=== PATIENT | male | born 1975 | race Caucasian/White ===

== ENCOUNTER 2022-11-22 14:52 | Outpatient (CLI) | payer OTHER, SELFPAY ==
--- NOTE | 2022-11-22 15:03 | MR_ITS ---
WS: [id number] MRI BRAIN WITH HIGH-RESOLUTION IMAGING THROUGH THE INTERNAL AUDITORY CANALS WITHOUT AND WITH CONTRAST HISTORY: SUDDEN IDIOPATHIC HEARING LOSS, LEFT EAR COMPARISON: None available. TECHNIQUE: Multiplanar, multisequence imaging is performed through the brain. Additional 3 mm imaging performed in multiple planes through the internal auditory canal. Postcontrast imaging with 20 ml's of MultiHance. No acute intracranial hemorrhage, midline shift, edema or mass effect. No prior infarcts. No significant microvascular disease. No significant volume loss. Ventricles are n ormal size. No mass effect. Ventricles and extra-axial spaces are normal. No inferior displacement of cerebellar tonsils. Clivus and pituitary gland are normal. Internal and external auditory canals: Unremarkable. Cranial nerves VII and VIII complexes: Unremarkable. No enhancement or mass. Cerebellopontine angles: Normal. Paranasal sinuses: Very minimal mucoperiosteal thickening in the posterior ethmoid air cells. Mastoid air cells: Normal. Calvarium and scalp: Normal. Visualized [place] and dural venous sinuses demonstrate no abnormality. IMPRESSION: 1. No mass or signal abnormality at the cerebellopontine angles along the internal auditory canals. 2. No intracranial mass. 3. Negative MRI brain.
[2022-11-22] MEDS: gadobenate dimeglumine 20 mL vial IV (16:50)
== END 2022-11-22 14:53 | disposition home or self-care (01) ==
LOC: RAD 14:52
PROVIDERS: PCP Emergency Medicine Emergency Medical Services; Visit Provider Specialist
DX: H91.22 Sudden idiopathic hearing loss, left ear (principal)
CPT/HCPCS: 70553; A9577

== ENCOUNTER 2023-02-07 02:58 | Emergency (ER) | payer OTHER, SELFPAY ==
[2023-02-07] VITALS (7 sets, daily range): BP systolic 103–172; BP diastolic 57–87; PULSE 85–104; RESP 15–20; TEMP 36.8; O2SAT 94–95
--- NOTE | 2023-02-07 03:04 | XRR_ITS ---
PROCEDURE INFORMATION: Exam: XR Chest Exam date and time: 02/07/2023 3:15 AM Age: 47 years old Clinical indication: Other: Syncope TECHNIQUE: Imaging protocol: Radiologic exam of the chest. Views: 1 view. Total images: 1479 COMPARISON: No relevant prior studies available. FINDINGS: Lungs: Unremarkable. No consolidation. Pleural spaces: Unremarkable. No pleural effusion. No pneumothorax. Heart/Mediastinum: Unremarkable. No cardiomegaly. Bones/joints: Unremarkable. XR/XR chest 1V portable [id number] IMPRESSION: No acute findings.
--- NOTE | 2023-02-07 03:04 | ECG_ITS ---
[facility] Test Date: 2023-02-07 Pat Name: Johnnie Gruber Department: Room: Gender: Male [employer] Final [employer]: : 1975 Requested By: Aniket Brunson Order Number: [id number] Lei MD: Sangeetha Grubbs M.D. Measurements Intervals [place] Rate: 81 P: 63 [place]: 170 QRS: 18 QRSD: 91 T: 50 QT: 365 QTc: 426 Interpretive Statements SINUS RHYTHM No previous ECG available for comparison Electronically Signed On 02-07-2023 16:06:01 HOUSE MANAGER by Sangeetha Grubbs M.D. [email or web address] [email or web address]/[id number] f
--- NOTE | 2023-02-07 03:05 | ED_ITS ---
HPI - Syncope 2 General: Chief Complaint: Dizziness Stated Complaint: Syncope Time Seen by Provider: 02/07/23 03:03 History of Present Illness: Patient brought into the ER by EMS with complaints of possible presyncopal type episode. Patient was at work when his coworkers noticed that he was kind of ashen doss and slower to respond than normal. They checked his blood sugar which was in the 150s approximately, they checked his blood pressure was 120/80 at that time. They did a twelve-lead and a 15-lead which they stated was unremarkable, they gave him a liter of normal saline bolus which they said it kept him up and he looks better upon arrival to the ER than he did before. Patient said he had a couple these episodes today where he is questioning the amount of water he drank. He states he been drinking coffee and tea all day today. Patient is a diabetic. Patient denies any chest pain, shortness of breath and states he feels better now that he did earlier. Physical Exam 2 Const: COMMON NORMALS: no acute distress, average body habitus, patient oriented x3, no limitations, healthy appearing, alert and well nourished HENMT: COMMON NORMALS: normocephalic, atraumatic, external ears normal, Normal external nose present, moist oral mucous membranes and oropharynx normal HEAD & SCALP: normocephalic and atraumatic NOSE: Normal external nose present E XTERNAL EAR: Yes external ears normal Eye: COMMON NORMALS: Equal, round and reactive pupils present, EOMs intact bilaterally, conjunctivae normal and no scleral icterus CONJUNCTIVA: Yes conjunctivae normal PUPIL: Yes Equal, round and reactive pupils present Neck/C-Spine: COMMON NORMALS: no JVD Chest: COMMONS NORMALS: normal inspection of the chest and normal palpation of entire chest wall Resp: COMMON NORMALS: normal respiratory effort, No retractions, No use of accessory muscles and clear to auscultation bilaterally AUSCULTATION: clear to auscultation bilaterally Cardio: COMMON NORMALS: no JVD, regular rate, regular rhythm, S1 normal heart sound present, S2 normal heart sound present, No gallops present (Cardio), No clicks present (Cardio), No murmurs present (Cardio) and No rub (Cardio) R ATE: regular rate RHYTHM: regular rhythm HEART SOUNDS: S1 normal heart sound present and S2 normal heart sound present GI: COMMON NORMALS: Normal to inspection, nondistended, normoactive bowel sounds present, Soft to palpation, non-tender, No hepatosplenomegaly present and no masses PALPATION: Yes Soft to palpation and Yes No hepatosplenomegaly present Neuro: COMMON NORMALS: patient oriented x3 SENSORIUM/ORIENTATION: Yes alert Course 2 Vital Signs: Vital signs: Vital Signs Temperature 98.2 F 02/07/23 03:00 Pulse Rate 86 02/07/23 05:02 Respiratory Rate 16 02/07/23 05:02 Blood Pressure 111/86 02/07/23 05:02 Pulse Oximetry 94 02/07/23 05:02 Oxygen Delivery Me thod Room Air 02/07/23 05:02 MDM - Syncope Medical Decision Making Patient had lab work done including CBC CMP cardiac enzymes, chest x-ray, serial EKGs. All of which was essentially benign. Patient is orthostatic vital signs done essentially benign. Patient's magnesium was slightly low 1.5. Patient received 1 L bolus of normal saline 4 mg Zofran and is feeling better. Patient is ready to go home. Patient be discharged home to follow-up with his PCP on an as-needed basis Differential Diagnosis Unlikely syncope due to orthostatic hypotension, vasovagal syncope, complete atrioventricular block, subarachnoid hemorrhage, pulmonary embolism or dehydration Medical Records I reviewed the patient's medical records. Lab Data I reviewed the patient's lab results. 02/07/23 03:10 02/07/23 03:10 Radiology Impressions Chest X-Ray 02/07/23 03:04 IMPRESSION: No acute findings. Laboratory Results WBC 13.75 10^3/uL (3.29-11.43) H 02/07/23 03:10 RBC 5.09 10^6/uL (3.85-5.65) 02/07/23 03:10 Hgb 15.50 g/dL (11.27-16.99) 02/07/23 03:10 Hct 44.7 % (37-53) 02/07/23 03:10 MCV 87.8 fl (82-101) 02/07/23 03:10 MCH 30.5 pg (27-33) 02/07/23 03:10 MCHC 34.7 g/dL (30-55) 02/07/23 03:10 RDW 12.9 % (12.1-15.1) 02/07/23 03:10 Plt Count 227 10^3/cmm (157-399) 02/07/23 03:10 MPV 10.1 fL (7.4-10.4) 02/07/23 03:10 Neut % (Auto) 72.7 % 02/07/23 03:10 Lymph % (Auto) 16.6 % 02/07/23 03:10 [place] % (Auto) 6.8 % 02/07/23 03:10 Eos % (Auto) 2.6 % 02/07/23 03:10 Baso % (Auto) 0.9 % 02/07/23 03:10 Neut # (Auto) 10.01 10^3/uL (1.8-7.7) H 02/07/23 03:10 Lymph # (Auto) 2.3 10^3/uL (0.8-4.8) 02/07/23 03:10 [place] # (Auto) 0.9 10^3/uL (0.2-0.9) 02/07/23 03:10 Eos # (Auto) 0.4 10^3/uL (0.0-0.8) 02/07/23 03:10 Baso # (Auto) 0.1 10^3/uL (0.0-0.1) 02/07/23 03:10 Nucleated RBC % (auto) 0 % 02/07/23 03:10 Nucleated RBCs # 0.0 /100WBC 02/07/23 03:10 Sodium 131 mmol/L (136-145) L 02/07/23 03:10 Potassium 3.6 mmol/L (3.5-5.1) 02/07/23 03:10 Chloride 95 mmol/L (98-107) L 02/07/23 03:10 Carbon Dioxide 24 mmol/L (22-29) 02/07/23 03:10 Anion Gap 15.6 (5-19) 02/07/23 03:10 BUN 14 mg/dL (6-20) 02/07/23 03:10 Creatinine 0.7 mg/dL (0.7-1.2) 02/07/23 03:10 GFR Calculation 120.4 mL/min (90-130) 02/07/23 03:10 Glucose 192 mg/dL (65-115) H 02/07/23 03:10 Calculated Osmolality 278 mOsm/kg (285-295) L 02/07/23 03:10 Calcium 8.5 mg/dL (8.5-10.5) 02/07/23 03:10 Magnesium 1.5 mg/dL (1.7-2.3) L 02/07/23 03:10 Total Bilirubin 0.4 mg/dL (0.15-1.2) 02/07/23 03:10 AST 49 U/L (0-40) H 02/07/23 03:10 ALT 83 U/L (0-41) H 02/07/23 03:10 Alkaline Phosphatase 94 U/L (40-130) 02/07/23 03:10 Troponin T Baseline 9 ng/L (0-15) 02/07/23 03:10 Troponin T 120 Minute 6.41 ng/L (0-15) 02/07/23 04:50 Total Protein 6.1 g/dL (6.6-8.7) L 02/07/23 03:10 Albumin 3.9 g/dL (3.5-5.2) 02/07/23 03:10 Globulin 2.2 g/dL (1.3-4.6) 02/07/23 03:10 Urine Color Yellow (Yellow) 02/07/23 03:58 Urine Appearance Clear (CLEAR) 02/07/23 03:58 Urine pH 8 (5-7) H 02/07/23 03:58 Ur Specific [place] 1.010 (1.005-1.030) 02/07/23 03:58 Urine Protein Neg (Negative) 02/07/23 03:58 Urine Glucose (UA) 1+ (Normal) H 02/07/23 03:58 Urine Ketones Negative (Negative) 02/07/23 03:58 Urine Blood Neg (Negative) 02/07/23 03:58 Urine Nitrate Negative (Negative) 02/07/23 03:58 Urine Bilirubin Neg (Negative) 02/07/23 03:58 Prot Sulfosalicylic Acd Negative (Negative) 02/07/23 03:58 Urine Urobilinogen Neg mg/dL (Negative) 02/07/23 03:58 Ur Leukocyte Esterase Negative (Negative) 02/07/23 03:58 All radiology interpretation(s) finalized by discharge EKG Data EKG 1: I personally reviewed and interpreted this EKG as follows: EKG interpretation date: 02/07/23 EKG interpretation time: 03:04 Prior EKG tracings: not available for review Interpretation: EKG showed ventricular rate 81 bpm, ND interval 170, QRS duration 91, QTc of 403, sinus rhythm Discharge Plan Discharge Patient Disposition: Home Clinical Impression: Near syncope, Mild dehydration Condition: Stable Discharge Orders: Discharge ED (Routine); Ordered 02/07/23 Ordered By: Aniket Brunson Referrals: Ezequiel Nina DO [Primary Care Provider] - 1 week Patient Instructions: Near Syncope (ED), Dehydration - Adult Activity Restrictions/Additional Instructions: Push plenty of fluids. Take all medicine as directed. Please follow-up with your family practice physician for further evaluation and testing in the next 7 to 10 days as needed. Coding Level of Care Code ED Ready To Wear Department Manager for Jeovanny Hubbard
[2023-02-07 03:14] LABS: Basophils # 0.1 10^3/uL (0.0-0.1); Basophils % 0.9 %; Eosinophils # 0.4 10^3/uL (0.0-0.8); Eosinophils % 2.6 %; Hematocrit 44.7 % (37-53); Lymphocytes # 2.3 10^3/uL (0.8-4.8); Lymphocytes % 16.6 %; Mean Corpuscular HGB Conc 34.7 g/dL (30-55); Mean Corpuscular Hemoglobin 30.5 pg (27-33); Mean Corpuscular Volume 87.8 fl (82-101); Mean Platelet Volume 10.1 fL (7.4-10.4); Monocytes # 0.9 10^3/uL (0.2-0.9); Monocytes % 6.8 %; Neutrophils # 10.01 10^3/uL (1.8-7.7); Neutrophils % 72.7 %; Nucleated Red Blood Cells % 0 %; Platelet Count 227 10^3/cmm (157-399); Red Blood Count 5.09 10^6/uL (3.85-5.65); Red Cell Distribution Width 12.9 % (12.1-15.1); White Blood Count 13.75 10^3/uL (3.29-11.43)
[2023-02-07 03:33] LABS: Troponin(5th) Baseline 9 ng/L (0-15)
[2023-02-07 03:34] LABS: Alanine Aminotransferase 83 U/L (0-41); Albumin Level 3.9 g/dL (3.5-5.2); Alkaline Phosphatase 94 U/L (40-130); Aspartate Amino Transferase 49 U/L (0-40); Blood Urea Nitrogen 14 mg/dL (6-20); Calcium 8.5 mg/dL (8.5-10.5); Carbon Dioxide 24 mmol/L (22-29); Chloride 95 mmol/L (98-107); Globulin 2.2 g/dL (1.3-4.6); Glomerular Filtration Rate 120.4 mL/min (90-130); Glucose 192 mg/dL (65-115); Magnesium 1.5 mg/dL (1.7-2.3); Osmolality Calculated 278 mOsm/kg (285-295); Sodium 131 mmol/L (136-145); Total Bilirubin 0.4 mg/dL (0.15-1.2); Total Protein 6.1 g/dL (6.6-8.7)
[2023-02-07 03:36] LABS: Anion Gap 15.6 (5-19); Potassium 3.6 mmol/L (3.5-5.1)
[2023-02-07] MEDS: sodium chloride 0.9% 1,000 ML 999 ML IV (03:58)
[2023-02-07] MEDS: ondansetron 2 mg/ML SDV 2 mL 4 MG IVP (03:59)
[2023-02-07 04:09] LABS: Add Urine Microscopic? NO; Charge for UA Resulting for Rev
[2023-02-07 04:12] LABS: Glucose Urine UA 1+ (Normal); Protein Urine Neg (Negative); Urine Appearance Clear (CLEAR); Urine Color Yellow (Yellow); pH Urine 8 (5-7)
[2023-02-07 04:13] LABS: Bilirubin Urine Neg (Negative); Blood Urine Neg (Negative); Ketones Urine Negative (Negative); Leukocyte Esterase Urine Negative (Negative); Nitrate Urine Negative (Negative); Sulfosalicylic Acid Urine Negative (Negative); Urobilinogen Urine Neg (Negative)
--- NOTE | 2023-02-07 05:04 | ECG_ITS ---
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 Measurements Intervals [place] Rate: 81 P: 63 [place]: 170 QRS: 18 QRSD: 91 T: 50 QT: 365 QTc: 426 Interpretive Statements SINUS RHYTHM No previous ECG available for comparison Electronically Signed On 02-07-2023 16:18:20 DIRECTOR OF ONCOLOGY by Sangeetha Grubbs M.D. [id number] f
[2023-02-07 05:13] LABS: Troponin 5 2HR 6.41 ng/L (0-15)
[2023-02-07 05:19] LABS: Troponin 5 2HR Delta -2.59 ABS# (0-10)
== END 2023-02-07 05:27 | disposition home or self-care (01) ==
PROVIDERS: Emergency Provider Emergency Medicine; PCP Emergency Medicine Emergency Medical Services
DX: R55 Syncope and collapse (principal); E86.0 Dehydration; I95.1 Orthostatic hypotension
CPT/HCPCS: 71045; 80053; 81003; 83735; 84484; 85025; 93005; 96374; 99285; J2405; J7030

== ENCOUNTER 2024-06-30 07:28 | Outpatient (CLI) | payer OTHER, SELFPAY ==
--- NOTE | 2024-06-30 07:33 | US_ITS ---
WS: [id number] RIGHT UPPER QUADRANT ULTRASOUND HISTORY: ELEVATED LIVER ENZYMES COMPARISON: None available. Liver: 17.4 cm in length. Top normal size liver with diffuse coarse echotexture. No mass identified. The entire liver is not well imaged. Portal Vein: Normal hepatopetal flow with monophasic waveform. Gallbladder: Normally distended. There is a tiny 2 mm polyp in the gallbladder lumen. CBD: 0.6 cm Pancreas: Obscured by bowel gas. Right kidney: 11.7 cm in length. Normal size and echogenicity. No hydronephrosis or mass. Aorta and IVC: Unremarkable abdominal aorta and IVC. No ascites. US/US abdomen limited [id number] IMPRESSION: 1. Mild hepatomegaly with diffuse coarse echotexture. Hepatic steatosis versus hepatocellular disease. 2. No cholelithiasis. 2 mm polyp in the gallbladder lumen. 3. No hepatobiliary dilatation.
== END 2024-06-30 07:29 | disposition home or self-care (01) ==
LOC: RAD 07:30
PROVIDERS: PCP Nurse Practitioner; Visit Provider Nurse Practitioner
DX: R16.0 Hepatomegaly, not elsewhere classified (principal); K82.4 Cholesterolosis of gallbladder
CPT/HCPCS: 76705

== ENCOUNTER → 2024-07-06 10:26 | Outpatient (BNVA) | payer OTHER, SELFPAY | PROVIDERS: PCP Emergency Medicine Emergency Medical Services; Referring Provider Nurse Practitioner; Visit Provider Surgery | DX: Z12.11 Encounter for screening for malignant neoplasm of colon (principal) | CPT/HCPCS: 99203 ==